=== PATIENT | female | born 1980 ===

== ENCOUNTER 2017-08-31 01:34 | Inpatient (IN) ==
[2017-08-31] MEDS ORDERED: MORPHINE 2 MG/1 ML SYRINGE IV STA (02:33)
[2017-08-31] MEDS ORDERED: ONDANSETRON 4 MG/2 ML VIAL IV STA (02:34)
[2017-08-31] MEDS ORDERED: SODIUM CHLORIDE 0.9% 1,000 ML IV STA (02:34)
[2017-08-31] MEDS ORDERED: ONDANSETRON 4 MG/2 ML VIAL ONE (02:43)
[2017-08-31] MEDS ORDERED: MORPHINE 10 MG/1 ML VIAL ONE (02:44)
[2017-08-31] MEDS ORDERED: MORPHINE 2 MG/1 ML SYRINGE IV PRN (04:34)
[2017-08-31] MEDS ORDERED: SODIUM CHLORIDE 0.9% 1,000 ML IV SCH (05:00)
[2017-08-31] MEDS ORDERED: POTASSIUM CHLORIDE RIDER 10 MEQ in PREMIX 1 EACH IV PRN (05:35)
[2017-08-31 05:41] LABS: Risk Ratio 3.82; Thyroid Stimulating Hormone 1.32 uIU/ml (0.358-3.74); VLDL CHOLESTEROL 29.6 MG/DL
[2017-08-31] MEDS ORDERED: DEXTROSE 50% 25 GM/50 ML VIAL IV PRN (05:46)
[2017-08-31] MEDS ORDERED: GLUCAGON 1 MG VIAL IM PRN (05:46)
[2017-08-31] MEDS: MORPHINE 10 MG/1 ML VIAL IM PRN ×3 (07:32→16:50)
[2017-08-31] MEDS: INSULIN LISPRO 100 UNIT/ML SUBCUT SCH ×3 (07:34→17:47)
[2017-08-31] MEDS: ONDANSETRON 4 MG/2 ML VIAL IV PRN ×2 (07:34→16:51)
[2017-08-31] MEDS: SODIUM CHLOR 0.9% KCL 40 MEQ 40 MEQ/1,000 ML BAG IV SCH ×2 (07:35→16:49)
[2017-08-31] MEDS ORDERED: HYDROCORTISONE 0.5% CREAM 28.35 GM TUBE TOP PRN (11:55)
[2017-08-31] MEDS: PIPERACILLIN/TAZOBACTAM 3,375 MG in SODIUM CHLORIDE 0.9% 100 ML IV SCH ×2 (12:21→17:47)
[2017-08-31] MEDS ORDERED: MAGNESIUM SULF RIDER 2 GM in PREMIX 1 EACH IV ONE (13:31)
[2017-08-31] MEDS: methylPREDNISolone SOD SUC 40 MG/1 ML VIAL IV SCH ×2 (14:02→20:40)
[2017-08-31 14:15] LABS: Basophils % 0.3 % (0.0-0.8); Eosinophils % 0.3 % (0.00-10.9); Hematocrit 33.9 VOL% (35.7-47.0); Hemoglobin 10.9 GM/DL (12.0-16.0); Immature Granulocytes % 0.5 %; Immature Granulocytes Absolute 0.04 #; Lymphocytes # 2.2 10*3/uL (1.4-4.0); Lymphocytes % 27.8 % (21.3-54.2); Mean Corpuscular HGB Conc 32.2 GM/DL (32-36); Mean Corpuscular Hemoglobin 26 PG (27-34); Mean Corpuscular Volume 80.3 FL (87-102); Monocytes # 0.5 10*3/uL (0.11-0.8); Monocytes % 6.8 % (1.7-12.7); Neutrophils # 5.1 10*3/uL (1.4-7.4); Neutrophils % 64.3 % (38.7-73.9); Platelet Count 225 T/CUMM (130-400); Red Blood Count 4.22 MC/CUMM (3.8-5.5); Red Cell Distribution Width 14.3 % (9.3-17.3); White Blood Count 7.9 T/CUMM (4-12)
[2017-08-31 14:48] LABS: Albumin 3.2 G/DL (3.4-5.0); Bilirubin,Total 1.4 MG/DL (0.2-1.0); Calcium 8.5 MG/DL (8.5-10.1); Osmolality,Calculated 275.8 MOS/KG (273-304); Potassium 3.5 MMOL/L (3.5-5.1); Total Protein 7.7 G/DL (6.4-8.3)
[2017-08-31] MEDS: INSULIN GLARGINE 100 UNIT/ML SUBCUT SCH (16:48)
[2017-08-31] MEDS: diphenhydrAMINE 50 MG/1 ML VIAL IV SCH (17:21)
[2017-09-01] MEDS: diphenhydrAMINE 50 MG/1 ML VIAL IV SCH ×4 (01:13→18:36)
[2017-09-01] MEDS: INSULIN LISPRO 100 UNIT/ML SUBCUT SCH ×4 (01:14→18:37)
[2017-09-01] MEDS: SODIUM CHLOR 0.9% KCL 40 MEQ 40 MEQ/1,000 ML BAG IV SCH ×3 (02:19→21:08)
[2017-09-01] MEDS: PIPERACILLIN/TAZOBACTAM 3,375 MG in SODIUM CHLORIDE 0.9% 100 ML IV SCH ×3 (02:21→18:37)
[2017-09-01] MEDS: methylPREDNISolone SOD SUC 40 MG/1 ML VIAL IV SCH ×3 (05:35→21:06)
[2017-09-01 07:02] LABS: Hematocrit 33.3 VOL% (35.7-47.0); Hemoglobin 10.6 GM/DL (12.0-16.0); Immature Granulocytes % 0.6 %; Immature Granulocytes Absolute 0.04 #; Lymphocytes # 1.4 10*3/uL (1.4-4.0); Lymphocytes % 22.5 % (21.3-54.2); Mean Corpuscular HGB Conc 31.8 GM/DL (32-36); Mean Corpuscular Hemoglobin 26 PG (27-34); Mean Platelet Volume 10.5 FL (9.6-12.0); Monocytes # 0.1 10*3/uL (0.11-0.8); Monocytes % 1.9 % (1.7-12.7); Neutrophils # 4.7 10*3/uL (1.4-7.4); Platelet Count 233 T/CUMM (130-400); Red Blood Count 4.16 MC/CUMM (3.8-5.5); Red Cell Distribution Width 14.4 % (9.3-17.3); White Blood Count 6.2 T/CUMM (4-12)
[2017-09-01 07:43] LABS: Albumin 2.8 G/DL (3.4-5.0); Bilirubin,Total 2.2 MG/DL (0.2-1.0); Calcium 8.6 MG/DL (8.5-10.1); Osmolality,Calculated 284.4 MOS/KG (273-304); Potassium 4.1 MMOL/L (3.5-5.1); Total Protein 7.3 G/DL (6.4-8.3)
[2017-09-01 08:12] LABS: PT Patient Result 10.6 SECS
[2017-09-01] MEDS: INSULIN GLARGINE 100 UNIT/ML SUBCUT SCH (09:07)
[2017-09-01] MEDS ORDERED: fentaNYL 100 MCG/2 ML VIAL ONE (13:51)
[2017-09-01] MEDS ORDERED: MIDAZOLAM 2 MG/2 ML VIAL ONE (13:52)
[2017-09-01] MEDS ORDERED: PROPOFOL 200 MG/20 ML VIAL IV ONE (15:31)
[2017-09-01] MEDS ORDERED: ONDANSETRON 4 MG/2 ML VIAL ONE (15:31)
[2017-09-01] MEDS ORDERED: LIDOCAINE 2% 5 ML VIAL ONE (15:31)
[2017-09-02] MEDS: diphenhydrAMINE 50 MG/1 ML VIAL IV SCH ×4 (00:53→17:40)
[2017-09-02] MEDS: SODIUM CHLOR 0.9% KCL 40 MEQ 40 MEQ/1,000 ML BAG IV SCH ×3 (00:53→17:41)
[2017-09-02] MEDS: INSULIN LISPRO 100 UNIT/ML SUBCUT SCH ×4 (00:54→17:41)
[2017-09-02] MEDS: PIPERACILLIN/TAZOBACTAM 3,375 MG in SODIUM CHLORIDE 0.9% 100 ML IV SCH ×3 (06:32→21:47)
[2017-09-02] MEDS: methylPREDNISolone SOD SUC 40 MG/1 ML VIAL IV SCH ×2 (06:33→12:43)
[2017-09-02] MEDS: INSULIN GLARGINE 100 UNIT/ML SUBCUT SCH (09:23)
[2017-09-02] MEDS ORDERED: INSULIN GLARGINE 100 UNIT/ML SUBCUT SCH (12:05)
[2017-09-03] MEDS: INSULIN LISPRO 100 UNIT/ML SUBCUT SCH ×4 (00:38→17:39)
[2017-09-03] MEDS: diphenhydrAMINE 50 MG/1 ML VIAL IV SCH ×3 (00:39→11:31)
[2017-09-03] MEDS: methylPREDNISolone SOD SUC 40 MG/1 ML VIAL IV SCH ×2 (00:40→13:34)
[2017-09-03] MEDS: PIPERACILLIN/TAZOBACTAM 3,375 MG in SODIUM CHLORIDE 0.9% 100 ML IV SCH ×3 (06:33→21:59)
[2017-09-03] MEDS: SODIUM CHLOR 0.9% KCL 40 MEQ 40 MEQ/1,000 ML BAG IV SCH (08:17)
[2017-09-03] MEDS ORDERED: BUPIVACAINE 0.25% 50 ML VIAL ONE (09:20)
[2017-09-03] MEDS ORDERED: TISSUE ADHESIVE 1 EACH APPLICATOR TOP ONE (09:20)
[2017-09-03] MEDS ORDERED: INSULIN GLARGINE 100 UNIT/ML SUBCUT SCH (13:09)
[2017-09-03] MEDS ORDERED: diphenhydrAMINE CAP 25 MG CAPSULE PO PRN (13:09)
[2017-09-03] MEDS ORDERED: HYDROmorphone 2 MG/1 ML VIAL ONE (13:12)
[2017-09-03] MEDS ORDERED: ONDANSETRON 4 MG/2 ML VIAL ONE (13:12)
[2017-09-03] MEDS ORDERED: KETOROLAC 30 MG/1 ML VIAL ONE (13:12)
[2017-09-03] MEDS ORDERED: PROPOFOL 200 MG/20 ML VIAL IV ONE (13:12)
[2017-09-03] MEDS ORDERED: GLYCOPYRROLATE 0.4 MG/2 ML VIAL ONE (13:12)
[2017-09-03] MEDS ORDERED: fentaNYL 100 MCG/2 ML VIAL ONE (13:12)
[2017-09-03] MEDS ORDERED: DESFLURANE 1 UNIT/15 MINUTE INH ONE (13:12)
[2017-09-03] MEDS ORDERED: NEOSTIGMINE 10 MG/10 ML VIAL ONE (13:12)
[2017-09-03] MEDS ORDERED: MIDAZOLAM 2 MG/2 ML VIAL ONE (13:12)
[2017-09-03] MEDS ORDERED: LACTATED RINGERS 1,000 ML IV ONE (13:13)
[2017-09-03] MEDS ORDERED: ROCURONIUM 100 MG/10 ML VIAL IV ONE (13:13)
[2017-09-03] MEDS ORDERED: ACETAMINOPHEN 1,000 MG/100 ML VIAL IV ONE (13:13)
[2017-09-03] MEDS ORDERED: SUCCINYLCHOLINE 200 MG/10 ML VIAL ONE (13:13)
[2017-09-04] MEDS: INSULIN LISPRO 100 UNIT/ML SUBCUT SCH ×3 (01:25→12:42)
[2017-09-04] MEDS: PIPERACILLIN/TAZOBACTAM 3,375 MG in SODIUM CHLORIDE 0.9% 100 ML IV SCH ×2 (06:16→15:10)
[2017-09-04] MEDS ORDERED: GLUCAGON 1 MG VIAL ONE (11:01)
[2017-09-04 12:44] VITALS: BP 149/63
== END 2017-09-04 15:30 | disposition home or self-care (01) | DRG 418 ==
LOC: EDUNIT# → EDBD → N.ED 01:34 → N.EDINP 04:26 → SUATTDRO 04:26 → N.5E 04:59
PROVIDERS: ADMIT Internal Medicine; ATTEND Internal Medicine
PROC: ERCPWSP (ICD-10-PCS; 2017-09-01 13:05)
PROC: LAPCHOL (2017-09-03 09:53)